=== PATIENT | male | born 1940 | race Caucasian/White ===

== ENCOUNTER 2023-12-26 21:20 | Observation (INO) | payer OTHER, MEDICARE ==
[2023-12-26] MEDS ORDERED: NALOXONE 0.4 MG/ML 1 ML VIAL IV PRN (21:25)
[2023-12-26] MEDS ORDERED: MORPHINE SULFATE 4 MG/ML SYRINGE IV PRN (21:25)
[2023-12-26] MEDS ORDERED: MORPHINE SULFATE 4 MG/ML SYRINGE IV STA (21:25)
[2023-12-26] MEDS ORDERED: SODIUM CHLORIDE 0.9% 1,000 ML IV STA (21:25)
[2023-12-26] MEDS ORDERED: ONDANSETRON 4 MG/2 ML VIAL IVP PRN (21:25)
--- NOTE | 2023-12-26 21:30 | ED ---
Recheck HPI - General Stated Complaint: Transfer Time Seen by Provider: 12/26/23 21:22 Source: RN notes reviewed, old records reviewed Limitations: no limitations - History of Present Illness Initial Comments: This is a 83-year-old male to the ER for evaluation today. Patient presents today for evaluation regards to chest pain and excepted in transfer from outside facility for chest pain, unstable angina. Patient still with chest pain here in the ER today. MD Complaint: other (Persistent chest pain) Returns Today for: Called Because of Abnormal Lab/Test, persistent/worsening pain related to initial visit Symptoms Since Prior Visit: worsening pain Associated Symptoms: none Treatments Prior to Arrival: other (0) - Related Data Allergies Allergy/AdvReac Type Severity Reaction Status Date / Time No Known Allergies Allergy Verified 12/26/23 21:34 Review of Systems ROS Statement: Those systems with pertinent positive or pertinent negative responses have been documented in the HPI. ROS Other: All systems not noted in ROS Statement are negative. General Exam General appearance: alert, in no apparent distress Head exam: Present: atraumatic, normocephalic, normal inspection Eye exam: Present: normal appearance, PERRL, EOMI. Absent: scleral icterus, conjunctival injection, periorbital swelling ENT exam: Present: normal exam, mucous membranes moist Neck exam: Present: normal inspection. Absent: tenderness, meningismus, lymphadenopathy Respiratory exam: Present: normal lung sounds bilaterally. Absent: respiratory distress, wheezes, rales, rhonchi, stridor Cardiovascular Exam: Present: regular rate, normal rhythm, normal heart sounds. Absent: systolic murmur, diastolic murmur, rubs, gallop, clicks GI/Abdominal exam: Present: soft, normal bowel sounds. Absent: distended, tenderness, guarding, rebound, rigid Extremities exam: Present: normal inspection, full ROM, normal capillary refill. Absent: tenderness, pedal edema, joint swelling, calf tenderness Back exam: Present: normal inspection Neurological exam: Present: alert, oriented X3, CN II-XII intact Psychiatric exam: Present: normal affect, normal mood Skin exam: Present: warm, dry, intact, normal color. Absent: rash Course Vital Signs 12/26/23 21:25 Temperature 98.1 F Pulse Rate 61 Respiratory 20 Rate Blood Pressure 147/91 O2 Sat by Pulse 96 Oximetry - Reevaluation(s) Reevaluation #1: 12/26/23 21:28 Medical records reviewed Reevaluation #2: 12/26/23 21:29 Patient still with chest pain Reevaluation #3: 12/26/23 21:29 Patient informed of results and questions answered Reevaluation #4: 12/26/23 21:29 Was pt. sent in by a medical professional or institution (, REGINA, MANAGER CORE, urgent care, hospital, or fdc...) When possible be specific @ -no Did you speak to anyone other than the patient for history (EMS, parent, family, police, friend...)? What history was obtained from this source @ -no Did you review nursing and triage notes (agree or disagree)? Why? @ -agree Are old charts reviewed (outside hosp., previous admission, EMS record, old EKG, old radiological studies, urgent care reports/EKG's, fdc records)? Report findings @ -yes Differential Diagnosis (chest pain, altered mental status, abdominal pain women, abdominal pain men, vaginal bleeding, weakness, fever, dyspnea, syncope, headache, dizziness, GI bleed, back pain, seizure, CVA, palpatations, mental health, musculoskeletal)? @ -prior EKG interpreted by me (3pts min.). @ -yes X-rays interpreted by me (1pt min.). @ -yes negative for acute disease CT interpreted by me (1pt min.). @ -no U/S interpreted by me (1pt. min.). @ -no What testing was considered but not performed or refused? (CT, X-rays, U/S, labs)? Why? @ -none What meds were considered but not given or refused? Why? @ -none Did you discuss the management of the patient with other professionals (professionals i.e. , REGINA, MANAGER CORE, lab, RT, psych nurse, social science research assistant, industrial diamond polisher, teacher, special forces warrant officer, case checker)? Give summary @ -no Was smoking cessation discussed for >3mins.? @ -no Was critical care preformed (if so, how long)? @ -no Were there social determinants of health that impacted care today? How? (Homelessness, low income, unemployed, alcoholism, drug addiction, tra nsportation, low edu. Level, literacy, decrease access to med. care, shelter, rehab)? @ -none Was there de-escalation of care discussed even if they declined (Discuss DNR or withdrawal of care, Hospice)? DNR status @ -no What co-morbidities impacted this encounter? (DM, HTN, Smoking, COPD, CAD, Cancer, CVA, ARF, Chemo, Hep., AIDS, mental health diagnosis, sleep apnea, morbid obesity)? @ -none Was patient admitted / discharged? Hospital course, mention meds given and route, prescriptions, significant lab abnormalities, going to OR and other pertinent info. @ - Undiagnosed new problem with uncertain prognosis? @ -no Drug Therapy requiring intensive monitoring for toxicity (Heparin, Nitro, Insulin, Cardizem)? @ -no Were any procedures done? @ -no Diagnosis/symptom? @ - Acute, or Chronic, or Acute on Chronic? @ -Acute Uncomplicated (without systemic symptoms) or Complicated (systemic symptoms)? @ -Complicated Side effects of treatment? @ -no Exacerbation, Progression, or Severe Exacerbation? @ -exacerbation Poses a threat to life or bodily function? How? (Chest pain, USA, OR, pneumonia, PE, COPD, DKA, ARF, appy, cholecystitis, CVA, Diverticulitis, Homicidal, Suicidal, threat to staff... and all critical care pts) @ -yes Reevaluation #5: 12/26/23 21:29 MDM differential Chest Pain: Stable Angina, Unstable Angina, STEMI, NSTEMI Aortic Dissection, Pneumothorax, Musculoskeletal, Esophageal Spasm GERD, Cholecystitis, Pancreatitis, Zoster, this is not meant to be an all-inclusive list. - Consultations Consultation #1: Spoke with sound who agrees to admit this patient Medical Decision Making - Medical Decision Making 83 male to the ER for evaluation today. Patient accepted in transfer for chest pain persistent chest pain here in the ER patient will be admitted for chest pain observation - EKG Data -: EKG Interpreted by Me (EKG is sinus 60 ME 231 QRS 89 QTc 423 with anterior lateral T wave inversio) Disposition Clinical Impression: Chest pain Disposition: ADMITTED IP TO THIS HOSP Condition: Fair Is patient prescribed a controlled substance at d/c from ED?: No Time of Disposition: 21:30
[2023-12-26] MEDS: SODIUM CHLORIDE 0.9% 1,000 ML IV SCH (21:38)
[2023-12-26] MEDS ORDERED: HEPARIN SODIUM 1,000 UN/ML (10ML VL) IV ONE (21:50)
[2023-12-26] MEDS ORDERED: HEPARIN SODIUM 1,000 UN/ML (10ML VL) IV PRN (21:50)
[2023-12-26] MEDS ORDERED: HEPARIN SOD,PORK IN 0.45% NACL 25,000 UNIT in 0.45% NACL 1 250ML.BAG IV SCH (22:00)
[2023-12-26 22:05] LABS: Partial Thromboplastin Time 24.7 sec (22.0-30.0); Prothrombin Time 10.7 sec (10.0-12.5)
[2023-12-26 22:09] LABS: ALT 25 U/L (4-49); AST 30 U/L (17-59); African American GFR (CKD) 63 (>60 ml/min/1.73 sqM); Albumin 3.5 g/dL (3.5-5.0); Alkaline Phosphatase 316 U/L (38-126); Anion Gap 12 mmol/L; Blood Urea Nitrogen 36 mg/dL (9-20); Calcium 9.6 mg/dL (8.4-10.2); Carbon Dioxide 21 mmol/L (22-30); Chloride 103 mmol/L (98-107); Glucose 148 mg/dL (74-99); Magnesium 2.2 mg/dL (1.6-2.3); Non-African American GFR(CKD) 54 (>60 ml/min/1.73 sqM); Phosphorus 4.2 mg/dL (2.5-4.5); Potassium 3.9 mmol/L (3.5-5.1); Sodium 136 mmol/L (137-145); Total Bilirubin 0.6 mg/dL (0.2-1.3); Total Protein 6.3 g/dL (6.3-8.2)
[2023-12-26 22:16] LABS: Basophils % (A) 0 %; Eosinophils # (A) 0.2 k/uL (0-0.7); Eosinophils % (A) 1 %; HCT 42.1 % (39.0-53.0); HGB 14.2 gm/dL (13.0-17.5); Lymphocytes # (A) 0.7 k/uL (1.0-4.8); Lymphocytes % (A) 6 %; MCH 28.5 pg (25.0-35.0); MCHC 33.7 g/dL (31.0-37.0); MCV 84.5 fL (80.0-100.0); Mean Platelet Volume 8.2; Monocytes # (A) 0.7 k/uL (0-1.0); Monocytes % (A) 6 %; Neutrophils # (A) 9.9 k/uL (1.3-7.7); Neutrophils % (A) 85 %; Platelet Count 255 k/uL (150-450); RBC 4.98 m/uL (4.30-5.90); RDW 14.6 % (11.5-15.5); WBC 11.7 k/uL (3.8-10.6)
[2023-12-26 22:18] LABS: NT-Pro-B-Type Natriuretic Pept 450 pg/mL
--- NOTE | 2023-12-27 04:30 | P.HPIM ---
History of Present Illness H&P Date: 12/26/23 Chief Complaint: Chest pain 83-year-old male with diabetes mellitus Patient was transferred from another facility for our cardiology team to evaluate. I was unable to review his transfer papers as they were unavailable at time of my evaluation nursing staff could not locate the chart. Patient reports couple days history of repeated productive cough of whitish/clear sputum no fevers no chills however he does report that with the bouts of coughing he would get short of breath today he was getting some chest pain and discomfort from repeated coughing for which she decided to drive to the hospital for evaluation somehow upon evaluation at the other facility the doctor s there is suspected cardiac source of his coughing for which they decided to transfer her to our hospital for further cardiology evaluation Patient denies any cardiac history denies any cardiac workup in the past. He denies any chest pain at this time. He denies any fevers any chills denies any shortness of breath denies any nausea vomiting abdominal pain changes in bowel or urine habit denies any leg edema. Patient denies tobacco smoking illicit drugs or heavy alcohol Patient denies any recent travel hospital stay or known sick contacts review of systems Pertinent positives as noted in HPI. All other systems were reviewed and are negative on exam Constitutional: No acute distress, conversant, pleasant Eyes: Anicteric sclerae, moist conjunctiva, Pupils equal round reactive to light ENMT: NC/AT Oropharynx clear, no erythema, or exudates Neck: Supple, no masses, or JVD No carotid bruits No thyromegaly Lungs: Clear to auscultation Clear to percussion Normal respiratory effort, no accessory muscle use Cardiovascular: Heart regular in rate and rhythm, Systolic murmurs, no gallops, or rubs No peripheral edema Abdominal: Soft Nontender, no guarding, rebound or rigidity Abdomen moving with respiration Normoactive bowel sounds No hepatomegaly, No splenomegaly No palpable mass No abdominal wall hernia noted Skin: Normal temperature, tone, texture, turgor No induration No subcutaneous nodules No rash, lesions No ulcers Extremities: No digital cyanosis No clubbing Pedal pulses intact and symmetrical Radial pulses intact and symmetrical No calf tenderness Psychiatric: Alert and oriented to person, place and time Appropriate affect fair judgement Neuro Muscles Strength 5/5 in all 4 extremities Sensation to light touch grossly present throughout Cranial nerves II-XII grossly intact Lymphatics: no palpable cervical or supraclavicular lymph nodes Past Medical History Past Medical History: Diabetes Mellitus, Hyperlipidemia, Hypertension History of Any Multi-Drug Resistant Organisms: None Reported Past Surgical History: Hernia Repair, Prostate Surgery Past Psychological History: No Psychological Hx Reported Smoking Status: Former smoker Past Alcohol Use History: Rare Past Drug Use History: None Reported Medications and Allergies Allergies Allergy/AdvReac Type Severity Reaction Status Date / Time No Known Allergies Allergy Verified 12/26/23 21:34 Physical Exam Vitals: Vital Signs Temp Pulse Resp BP Pulse Ox 12/26/23 22:45 67 18 139/78 95 12/26/23 21:25 98.1 F 61 20 147/91 96 Intake and Output 12/26/23 12/26/23 12/27/23 14:59 22:59 06:59 Other: Weight 72.575 kg Results CBC & Chem 7: 12/26/23 21:31 12/26/23 21:31 Labs: Abnormal Lab Results - Last 24 Hours (Table) 12/26/23 12/26/23 Range/Units 21:31 21:31 WBC 11.7 H (3.8-10.6) k/uL Neutrophils # 9.9 H (1.3-7.7) k/uL Lymphocytes # 0.7 L (1.0-4.8) k/uL Sodium 136 L (137-145) mmol/L Carbon Dioxide 21 L (22-30) mmol/L BUN 36 H (9-20) mg/dL Glucose 148 H (74-99) mg/dL Alkaline Phosphatase 316 H (38-126) U/L Assessment and Plan Assessment: 83-year-old male with diabetes mellitus was transferred to our facility for cardiac evaluation, patient reports couple day history of repeated coughing with associated chest pain. I discussed case with ED doctor and accepted the admission for atypical chest pain for ACS rule out with anticipated length of stay less than 2 midnights Transfer records from other hospital was not available immediately for my evaluation. Nursing staff was unable to locate the chart space for my review. Atypical chest pain rule out acute coronary syndrome Troponin is negative EKG shows lateral T wave inversions suggestive of lateral ischemia Continue to trend troponin Cardiac monitoring Vital signs monitoring Cardiology consult Echocardiogram in the morning Aspirin, statin Nitro as needed for chest pain Patient was started on heparin drip at the other facility which was continued in the ED Diabetes mellitus Insulin sliding scale Blood work reviewed unremarkable Hemoglobin 14 white count 11.7 Sodium 136 potassium 3.9 BUN 36 creatinine 1.24 Tropes negative Check respiratory viral panel Check chest x-ray Full code DVT prophylaxis currently on heparin drip for ACS protocol
[2023-12-27] MEDS ORDERED: DEXTROSE 50% SYRINGE 50 ML IVP PRN ×2 (04:32)
[2023-12-27] MEDS: SODIUM CHLORIDE 0.9% 1,000 ML IV SCH (05:22)
[2023-12-27 05:53] LABS: Glucose,Whole Blood 141 mg/dL (70-110)
[2023-12-27] MEDS: INSULIN ASPART (NovoLOG) 100 UNIT/ML VIAL SQ SCH ×4 (06:03→21:35)
[2023-12-27 06:25] LABS: Basophils % (A) 0 %; Eosinophils # (A) 0.2 k/uL (0-0.7); Eosinophils % (A) 2 %; HCT 43.3 % (39.0-53.0); HGB 14.1 gm/dL (13.0-17.5); Lymphocytes # (A) 0.6 k/uL (1.0-4.8); Lymphocytes % (A) 7 %; MCH 28.4 pg (25.0-35.0); MCHC 32.6 g/dL (31.0-37.0); MCV 87.1 fL (80.0-100.0); Mean Platelet Volume 7.9; Monocytes # (A) 0.5 k/uL (0-1.0); Monocytes % (A) 6 %; Neutrophils # (A) 7.4 k/uL (1.3-7.7); Neutrophils % (A) 84 %; Platelet Count 220 k/uL (150-450); RBC 4.96 m/uL (4.30-5.90); RDW 14.6 % (11.5-15.5); WBC 8.8 k/uL (3.8-10.6)
[2023-12-27 07:20] LABS: ALT 23 U/L (4-49); AST 27 U/L (17-59); African American GFR (CKD) 65 (>60 ml/min/1.73 sqM); Albumin 3.3 g/dL (3.5-5.0); Alkaline Phosphatase 312 U/L (38-126); Anion Gap 11 mmol/L; Blood Urea Nitrogen 32 mg/dL (9-20); Calcium 9.4 mg/dL (8.4-10.2); Carbon Dioxide 20 mmol/L (22-30); Chloride 105 mmol/L (98-107); Glucose 142 mg/dL (74-99); Magnesium 2.1 mg/dL (1.6-2.3); Non-African American GFR(CKD) 56 (>60 ml/min/1.73 sqM); Sodium 136 mmol/L (137-145); Total Bilirubin 0.7 mg/dL (0.2-1.3)
--- NOTE | 2023-12-27 08:59 | XR ---
EXAMINATION TYPE: XR chest 1V portable DATE OF EXAM: 12/27/2023 COMPARISON: 12/26/2023 INDICATION: Cough TECHNIQUE: Single frontal view of the chest is obtained. FINDINGS: The heart size is normal. The pulmonary vasculature is normal. The lungs are clear. Spondylosis within the thoracic spine. IMPRESSION: 1. No acute pulmonary process.
[2023-12-27] MEDS: ASPIRIN 81 MG PO SCH (09:39)
[2023-12-27] MEDS: ATORVASTATIN 40 MG TAB PO SCH (09:40)
[2023-12-27] MEDS ORDERED: MAG HYDROX/AL HYDROX/SIMETH 30 ML, HYOSCYAMINE ELIXIR 10 ML, LIDOCAINE VISCOUS 10 ML PO ONE ×3 (09:57)
--- NOTE | 2023-12-27 09:59 | P.PN ---
Subjective Progress Note Date: 12/27/23 Hospital course: Patient is a very pleasant 83-year-old male with a past medical history of hypertension, hyperlipidemia, non-insulin dependent diabetes mellitus, and currently under evaluation by exchange floor manager for suspected renal carcinoma. Patient was transferred from [facility] ER secondary to reports of chest pain and slightly elevated troponins with reported EKG changes. Upon arrival to our facility patient underwent full evaluation. Vital signs at time of arrival show blood pressure 147/91, heart rate 61, respiratory rate 20, temp 98.1 F, a nd SpO2 of 96% on room air. Labs completed and reviewed. CBC showing mild leukocytosis with WBC count of 11.7. Coagulation profile normal findings. BMP revealed mild hypocarbia with bicarb of 21, chloride of 103 and slightly elevated anion gap of 12, renal function also indicating prerenal azotemia with BUN of 36 and creatinine of 1.24. Blood glucose was 148. Liver profile showed elevated alkaline phosphatase of 316. Troponin was 0.021. proBNP was 450.. EKG was completed showing normal sinus rhythm with a first-degree AV block with MO interval of 231 ms and T wave inversion in leads I, II, and V2 through V6. Chest x-ray was completed and negative for acute cardiopulmonary process. Patient was started on low intensity heparin infusion and admitted under our services with consultation to cardiology. Physical exam: Patient seen and fully evaluated at bedside this morning. Patient's family at bedside visiting. Patient describes currently feeling pain in lower chest/epigastric region that he describes as a burning sensation that he is correlating with indigestion from eating breakfast at this time. Orders placed for GI cocktail we will continue to monitor closely. Upon further evaluation patient also reports that he has been experiencing exertional dyspnea as well as dizziness upon standing. Vital signs reviewed and stable. General: Nontoxic, no distress and appears stated age. Derm: Skin warm and dry, normal coloration for ethnicity. Head: Atraumatic, normocephalic and symmetric. Eyes: EOMs intact, no lid lag, and anicteric sclera Mouth: no lip lesions, mucus membranes moist Cardiovascular: regular rate and rhythm with normal S1S2, systolic murmur, positive posterior tibial pulses bilaterally, and cap refill < 2 seconds. Lungs: Respirations even, regular, and unlabored on room air. Lungs CTA bilaterally, no rhonchi, no rales, no wheezing, and no accessory muscle usage. Abdominal: soft, nontender to palpation, no guarding, no appreciable organomegaly Ext: ROM intact. No gross muscle atrophy, no edema, no contractures Neuro: Speech clear, face symmetrical and CN II-XII grossly intact with no noted focal neuro deficits Psych: Alert and oriented to person, place, time, and situation. Appropriate and pleasant affect. Assessment and Plan of Care: Chest pain, rule out acute coronary event EKG changes, concerning for lateral wall ischemia Reports of dizziness/lightheadedness upon standing Exertional dyspnea History of hypertension History of hyperlipidemia -Cardiology following, planning to take patient for stress test Friday morning -Telemetry monitoring -Trend troponins -Cardiac diet -Patient started on aspirin 81 mg daily and atorvastatin 2 mg daily. -Lipid profile with a.m. labs. -Echocardiogram -Orders placed for orthostatic vitals None insulin-dependent Diabetes Mellitus with hemoglobin A1c of 11.8% -Hold oral hypoglycemic medications and pt placed on glycemic protocol with novolog sliding scale. Data reviewed: Vital signs reviewed. Blood pressure 124/68, heart rate 64, respiratory rate 19, temp 97.7 F, and SpO2 is 95% on room air. Morning labs reviewed and stable. CBC unremarkable. BMP revealing bicarb of 20 and elevated BUN of 32 otherwise normal findings. Blood glucose stable at 142 this morning. Hemoglobin A1c 11.8%. CODE STATUS: Full code DVT prophylaxis: Currently on low intensity heparin infusion Anticipated discharge date: Clinical course to determine Anticipated discharge place: Clinical course to determine Patient was seen independently by Nurse Pracitioner. This document was prepared using [employer] dictation software. Please allow for errors in director mortgage, while rare they do occur. Objective - Vital Signs Vital signs: Vital Signs Temp 97.7 F 12/27/23 07:00 Pulse 64 12/27/23 07:00 Resp 19 12/27/23 07:00 BP 124/68 12/27/23 07:00 Pulse Ox 95 12/27/23 07:00 FiO2 Intake & Output 12/26/23 12/27/23 12/27/23 18:59 06:59 18:59 Intake Total 69.817 Balance 69.817 Weight 72.575 kg Intake: Intake, IV Titration 69.817 Amount Heparin Sod,Pork in 0.45% 69.817 NaCl 25,000 unit In 0.45 % NaCl 1 250ml.bag @ 12 UNITS/KG/HR 8.709 mls/hr IV .Q24H [facility] Rx#: [id number] Other: # Voids 1 - Labs CBC & Chem 7: 12/27/23 05:44 12/27/23 05:44 Labs: Abnormal Lab Results - Last 24 Hours (Table) 12/26/23 12/26/23 12/27/23 Range/Units 21:31 21:31 05:44 WBC 11.7 H (3.8-10.6) k/uL Neutrophils # 9.9 H (1.3-7.7) k/uL Lymphocytes # 0.7 L 0.6 L (1.0-4.8) k/uL APTT (22.0-30.0) sec Sodium 136 L (137-145) mmol/L Carbon Dioxide 21 L (22-30) mmol/L BUN 36 H (9-20) mg/dL Glucose 148 H (74-99) mg/dL POC Glucose (mg/dL) (70-110) mg/dL Alkaline Phosphatase 316 H (38-126) U/L Total Protein (6.3-8.2) g/dL Albumin (3.5-5.0) g/dL 12/27/23 12/27/23 12/27/23 Range/Units 05:44 05:44 05:52 WBC (3.8-10.6) k/uL Neutrophils # (1.3-7.7) k/uL Lymphocytes # (1.0-4.8) k/uL APTT 51.4 H (22.0-30.0) sec Sodium 136 L (137-145) mmol/L Carbon Dioxide 20 L (22-30) mmol/L BUN 32 H (9-20) mg/dL Glucose 142 H (74-99) mg/dL POC Glucose (mg/dL) 141 H (70-110) mg/dL Alkaline Phosphatase 312 H (38-126) U/L Total Protein 6.0 L (6.3-8.2) g/dL Albumin 3.3 L (3.5-5.0) g/dL
--- NOTE | 2023-12-27 10:57 | P.CRDCN ---
History of Present Illness Consult date: 12/27/23 Consult reason: chest pain History of present illness: History of present illness: This is an 83-year-old man with no previous cardiac history and no previous cardiac workup. He has a past medical history of diabetes, hypertension, hyperlipidemia, remote tobacco use and dependence. We have been asked to evaluate the patient for chest pain. Patient states that for the past 1 and half months he has had cough with phlegm production which he thought was his sinuses. He thought it was continuing to worsen and then he developed weakness and sweats and some chest pain when he coughed and gagged. Chest pain was in the midsternal area that was nonradiating but now the pain seems to be in the epigastric area. Patient presented to facility in [place] and lab work there was done which showed a normal troponin of 0.023. Sodium 133, potassium 4.3, BUN 37 and creatinine 1.4, blood sugar 290. Chest x-ray showed no focal consolidation. Left lower lobe atelectasis. Patient was transferred to [facility] for further evaluation. He is seen today on the observation unit. He has a heparin drip running. He continues to have cough. EKG sinus rhythm with first-degree block Chest x-ray: No acute process WBC 8.8, hemoglobin 14.1, platelet count 220. Sodium 136, potassium 4, BUN 32 creatinine 1.2. Blood sugar 142. Magnesium 2.1. Alkaline phosphatase 312 other liver function test are normal. Home cardiac medications: None listed Review Of Systems: At the time of my evaluation: Constitutional: No fever, no chills. No weakness, fatigue or lethargy. EENT: No headache. No dizziness. Lungs: No shortness of breath, cough, no sputum production. No wheezing. Cardiovascular: No chest pain, no lower extremity edema. No palpitations. No paroxysmal nocturnal dyspnea. No orthopnea. No lightheadedness or dizziness. No syncopal episodes. Abdominal: No abdominal pain. No nausea, vomiting. No diarrhea. No constipation. No bloody or tarry stools. Genitourinary: No dysuria.. No urinary retention. Musculoskeletal: No myalgias. No muscle weakness, no frequent falls. No back pain. No neck pain. Integumentary: No wounds. No rash. No unusual bruising. Neurologic: No aphasia. No facial droop. No change in mentation. No head injury. No headache. Physical examination: Gen: This is an 83-year-old male appears to be comfortable, no acute distress, frequent coughing noted. VS: reviewed HEENT: Head is atraumatic, normocephalic. Pupils equal, round. Sclerae is anicteric. NECK: Supple. No JVD. . LUNGS: Clear to auscultation. No wheezes or rhonchi. No intercostal retractions. HEART: Regular rate and rhythm. 2/6 systolic ejection murmur ABDOMEN: Soft No tenderness. EXTREMITIES: No pedal edema. No calf tenderness. NEUROLOGICAL: Patient is awake, alert and oriented x3. Assessment: Chest pain rule out coronary artery disease Aortic stenosis Acute kidney injury Elevated alkaline phosphatase Bronchitis Diabetes Hypertension Hyperlipidemia Remote history of tobacco use Plan: Continue current cardiac medications started by attending. Discontinue heparin drip Obtain 2-D echocardiogram and Doppler study to assess cardiac structure and function Patient will be tentatively scheduled for Lexiscan stress test on Friday N.p.o. after midnight on Friday. A1c and lipid panel ordered Further recommendations to follow based upon clinical course Thank you kindly for this consultation. Nurse practitioner note has been reviewed, I agree with documented findings and plan of care. Patient was seen and examined. Past Medical History Past Medical History: Diabetes Mellitus, Hyperlipidemia, Hypertension History of Any Multi-Drug Resistant Organisms: None Reported Past Surgical History: Hernia Repair, Prostate Surgery Past Psychological History: No Psychological Hx Reported Smoking Status: Former smoker Past Alcohol Use History: Rare Past Drug Use History: None Reported Medications and Allergies Allergies Allergy/AdvReac Type Severity Reaction Status Date / Time No Known Allergies Allergy Verified 12/26/23 21:34 Physical Exam Vitals: Vital Signs Temp Pulse Pulse Resp BP BP Pulse Ox 12/27/23 07:00 97.7 F 64 19 124/68 95 12/27/23 02:00 97.6 F 55 L 16 137/65 95 12/26/23 23:40 97.6 F 66 16 153/73 95 12/26/23 22:45 67 18 139/78 95 12/26/23 21:25 98.1 F 61 20 147/91 96 Intake and Output 12/26/23 12/27/23 12/27/23 22:59 06:59 14:59 Intake Total 69.817 Balance 69.817 Intake: Intake, IV Titration 69.817 Amount Heparin Sod,Pork in 0.45% 69.817 NaCl 25,000 unit In 0.45 % NaCl 1 250ml.bag @ 12 UNITS/KG/HR 8.709 mls/hr IV .Q24H [facility] Rx#: [id number] Other: # Voids 1 Weight 72.575 kg Results 12/27/23 05:44 12/27/23 05:44 Cardiac Enzymes 12/26/23 12/26/23 12/27/23 Range/Units 21:31 21:31 05:44 AST 30 27 (17-59) U/L Troponin I 0.021 (0.000-0.034) ng/mL Coagulation 12/26/23 12/27/23 Range/Units 21:31 05:44 PT 10.7 (10.0-12.5) sec APTT 24.7 51.4 H (22.0-30.0) sec CBC 12/26/23 12/27/23 Range/Units 21:31 05:44 WBC 11.7 H 8.8 (3.8-10.6) k/uL RBC 4.98 4.96 (4.30-5.90) m/uL Hgb 14.2 14.1 (13.0-17.5) gm/dL Hct 42.1 43.3 (39.0-53.0) % Plt Count 255 220 (150-450) k/uL Comprehensive Metabolic Panel 12/26/23 12/27/23 Range/Units 21:31 05:44 Sodium 136 L 136 L (137-145) mmol/L Potassium 3.9 4.0 (3.5-5.1) mmol/L Chloride 103 105 (98-107) mmol/L Carbon Dioxide 21 L 20 L (22-30) mmol/L BUN 36 H 32 H (9-20) mg/dL Creatinine 1.24 1.20 (0.66-1.25) mg/dL Glucose 148 H 142 H (74-99) mg/dL Calcium 9.6 9.4 (8.4-10.2) mg/dL AST 30 27 (17-59) U/L ALT 25 23 (4-49) U/L Alkaline Phosphatase 316 H 312 H (38-126) U/L Total Protein 6.3 6.0 L (6.3-8.2) g/dL Albumin 3.5 3.3 L (3.5-5.0) g/dL Current Medications Generic Name Dose Route Start Last Admin Trade Name Freq PRN Reason Stop Dose Admin Dextrose/Water 25 ml 12/27/23 04:32 Dextrose 50% Syringe 50 Ml IVP PER PROTOCOL PRN Hypoglycemia Protocol Dextrose/Water 50 ml 12/27/23 04:32 Dextrose 50% Syringe 50 Ml IVP PER PROTOCOL PRN Hypoglycemia Protocol Heparin Sodium (Porcine) 0 unit 12/26/23 21:50 Heparin Sodium 1,000 Un/Ml (10ml Vl) IV PER PROTOCOL PRN Low PTT Protocol Sodium Chloride 1,000 mls @ 130 mls/hr 12/26/23 21:30 12/27/23 05:22 Saline 0.9% IV Not Given .Q7H42M [facility] Heparin Sodium/Sodium Chloride 250 mls @ 8.709 mls/hr 12/26/23 22:00 12/27/23 06:41 25,000 unit/ Sodium Chloride IV 12 units/kg/hr .Q24H [facility] 8.709 mls/hr Titration Protocol 12 UNITS/KG/HR Insulin Aspart 0 unit 12/27/23 07:30 12/27/23 06:03 Insulin Aspart (Novolog) 100 Unit/Ml Vial SQ Not Given ACHS [facility] Protocol Morphine Sulfate 4 mg 12/26/23 21:25 Morphine Sulfate 4 Mg/Ml Syringe IV Q4HR PRN Severe Pain (Scale 7 to 10) Naloxone HCl 0.2 mg 12/26/23 21:25 Naloxone 0.4 Mg/Ml 1 Ml Vial IV Q2M PRN Opioid Reversal Ondansetron HCl 4 mg 12/26/23 21:25 Ondansetron 4 Mg/2 Ml Vial IVP Q8HR PRN Nausea And Vomiting Intake and Output 12/26/23 12/27/23 12/27/23 22:59 06:59 14:59 Intake Total 69.817 Balance 69.817 Intake: Intake, IV Titration 69.817 Amount Heparin Sod,Pork in 0.45% 69.817 NaCl 25,000 unit In 0.45 % NaCl 1 250ml.bag @ 12 UNITS/KG/HR 8.709 mls/hr IV .Q24H [facility]#: [id number] Other: # Voids 1 Weight 72.575 kg 12/27/23 05:44 12/27/23 05:44
--- NOTE | 2023-12-27 12:02 | CA ---
Transthoracic Echo Report Name: Milton Maurer Age: 83 Gender: M : 1940 Exam Date: 12/27/2023 10:08 Exam Location: [place] [facility] Ht (in): 70 Wt (lb): 160 Ordering Physician: Phil Patino Attending/Referring Phys: Diesel Truck Driver Renetta Terrell RDCS Procedure CPT: Indications: Evaluate structure and function of heart Cardiac Hx: Technical Quality: Good Contrast 1: Total Dose (mL): Contrast 2: Total Dose (mL): MEASUREMENTS (Male / Female) Normal Values 2D ECHO LV Diastolic Diameter PLAX 4.6 cm 4.2 - 5.9 / 3.9 - 5.3 cm LV Systolic Diameter PLAX 3.0 cm IVS Diastolic Thickness 1.2 cm 0.6 - 1.0 / 0.6 - 0.9 cm LVPW Diastolic Thickness 1.1 cm 0.6 - 1.0 / 0.6 - 0.9 cm LV Relative Wall Thickness 0.5 RV Internal Dim ED PLAX 3.6 cm LVOT Diameter 2.3 cm LA Systolic Diameter LX 4.1 cm 3.0 - 4.0 / 2.7 - 3.8 cm LV Diastolic Volume MOD BP 78.1 cm??? 67 - 155 / 56 - 104 cm??? LV Systolic Volume MOD BP 19.9 cm??? 22 - 58 / 19 - 49 cm??? LV Ejection Fraction MOD BP 74.6 % >= 55 % LV Cardiac Index MOD BP 1750.5 cm???/min???m??? LV Diastolic Volume MOD 4C 66.6 cm??? LV Systolic Volume MOD 4C 17.9 cm??? LV Ejection Fraction MOD 4C 73.1 % LV Cardiac Index MOD 4C 1465.8 cm???/min???m??? LV Diastolic Length 4C 7.2 cm LV Systolic Length 4C 6.7 cm LV Diastolic Volume MOD 2C 84.6 cm??? LV Systolic Volume MOD 2C 21.0 cm??? LV Ejection Fraction MOD 2C 75.2 % LV Cardiac Index MOD 2C 1912.9 cm???/min???m??? LV Diastolic Length 2C 8.0 cm LV Systolic Length 2C 7.2 cm LA Volume 70.8 cm??? 18 - 58 / 22 - 52 cm??? LA Volume Index 37.3 cm???/m??? 16 - 28 cm???/m??? M-MODE Aortic Root Diameter MM 3.9 cm MV E Point Septal Separation 1.1 cm AV Cusp Separation MM 1.8 cm DOPPLER AV Peak Velocity 363.2 cm/s AV Peak Gradient 52.8 mmHg AV Mean Velocity 233.3 cm/s AV Mean Gradient 25.6 mmHg AV Velocity Time Integral 75.5 cm AI Peak Velocity 347.1 cm/s AI Peak Gradient 48.2 mmHg AI Pressure Half Time 532.2 ms LVOT Peak Velocity 132.8 cm/s LVOT Peak Gradient 7.1 mmHg AV Area Cont Eq pk 1.5 cm??? MV Area PHT 2.4 cm??? Mitral E Point Velocity 69.9 cm/s Mitral A Point Velocity 97.7 cm/s Mitral E to A Ratio 0.7 MV Deceleration Time 322.2 ms TR Peak Velocity 304.0 cm/s TR Peak Gradient 37.0 mmHg Right Ventricular Systolic Press 42.0 mmHg FINDINGS Left Ventricle Left ventricular ejection fraction is estimated at 65-70 %. Mildly increased septal wall thickness. Left ventricular cavity size normal. No obvious regional wall motion abnormalities. Right Ventricle Mild right ventricular dilatation. Mild pulmonary hypertension. Right Atrium Normal right atrial size. Left Atrium Mildly increased left atrial diameter. Moderately increased left atrial volume. Mildly increased left atrial area. Mitral Valve Mitral valve thickened. Mild mitral annular calcification. Mild mitral regurgitation. Aortic Valve Trileaflet aortic valve. Aortic valve sclerosis. Moderate aortic stenosis with a peak gradient of 53 mmHg and a mean gradient of 26 mmHg. Njve-uv-defyboye aortic regurgitation. Tricuspid Valve Structurally normal tricuspid valve. Mild tricuspid regurgitation. Pulmonic Valve Structurally normal pulmonic valve. No pulmonic regurgitation. Pericardium No pericardial effusion. Aorta Mild aortic dilatation at the level of the sinuses of valsalva 39 mm CONCLUSIONS Normal LV function Mild mitral regurgitation Moderate aortic stenosis Mild to moderate iritic regurgitation Mildly dilated aortic root Previewed by: Dr. Miquel Lofton MD (Electronically Signed) Final Date: 27 December 2023 12:01
[2023-12-27 12:08] LABS: Glucose,Whole Blood 295 mg/dL (70-110)
[2023-12-27 17:30] LABS: Glucose,Whole Blood 229 mg/dL (70-110)
[2023-12-27 20:42] LABS: Glucose,Whole Blood 169 mg/dL (70-110)
[2023-12-28 06:03] LABS: Glucose,Whole Blood 185 mg/dL (70-110)
[2023-12-28] MEDS: INSULIN ASPART (NovoLOG) 100 UNIT/ML VIAL SQ SCH ×4 (06:05→21:03)
[2023-12-28] MEDS: ASPIRIN 81 MG PO SCH (08:50)
[2023-12-28] MEDS: ATORVASTATIN 40 MG TAB PO SCH (08:50)
[2023-12-28 10:24] LABS: HCT 42.6 % (39.6-50.0); HGB 13.6 g/dL (13.0-17.0); MCH 27.2 pg (27.0-32.0); MCHC 31.9 g/dL (32.0-37.0); MCV 85.2 FL (80.0-97.0); Mean Platelet Volume 10.5 FL (9.5-12.2); NRBC Per 100 WBC 0 X 10*3/uL (0.00-0.01); Platelet Count 215 X 10*3/uL (140-440); RDW 14.8 % (11.5-14.5); WBC 8.86 X 10*3/uL (4.50-10.00)
[2023-12-28] MEDS ORDERED: FAMOTIDINE 20 MG TAB PO SCH (11:30)
--- NOTE | 2023-12-28 11:32 | P.PN ---
Subjective Progress Note Date: 12/28/23 Consult reason: chest pain History of present illness: History of present illness: This is an 83-year-old man with no previous cardiac history and no previous cardiac workup. He has a past medical history of diabetes, hypertension, hyperlipidemia, remote tobacco use and dependence. We have been asked to evaluate the patient for chest pain. Patient states that for the past 1 and half months he has had cough with phlegm production which he thought was his sinuses. He thought it was continuing to worsen and then he developed weakness and sweats and some chest pain when he coughed and gagged. Chest pain was in the midsternal area that was nonradiating but now the pain seems to be in the epigastric area. Patient presented to facility in [place] and lab work there was done which showed a normal troponin of 0.023. Sodium 133, potassium 4.3, BUN 37 and creatinine 1.4, blood sugar 290. Chest x-ray showed no focal consolidation. Left lower lobe atelectasis. Patient was transferred to [facility] for further evaluation. He is seen today on the observation unit. He has a heparin drip running. He continues to have cough. EKG sinus rhythm with first-degree block Chest x-ray: No acute process WBC 8.8, hemoglobin 14.1, platelet count 220. Sodium 136, potassium 4, BUN 32 creatinine 1.2. Blood sugar 142. Magnesium 2.1. Alkaline phosphatase 312 other liver function test are normal. Home cardiac medications: None listed 12/28 Patient complains of a little upset stomach this morning that he thinks related to [place]. He denies having any chest pain. He denies having much cough today. Blood pressure running between 109 systolic 253. Heart rate is in the 70s, pulse ox 94% on room air. Hemoglobin 13.6. Chemistry results not available the time of this dictation. A1c 11.8. Echocardiogram results have been reviewed with the patient. He is agreeable to undergo stress testing tomorrow. Echocardiogram reveals normal LV function. Mild mitral digitation. Moderate aortic stenosis, mild to moderate aortic regurgitation. Mildly dilated aortic root. Physical examination: Gen: This is an 83-year-old male appears to be comfortable and in no acute distress. VS: reviewed HEENT: Head is atraumatic, normocephalic. Pupils equal, round. Sclerae is anicteric. LUNGS: Clear to auscultation. No wheezes or rhonchi. No intercostal retractions. HEART: Regular rate and rhythm. 2/6 systolic ejection murmur EXTREMITIES: No pedal edema. No calf tenderness. NEUROLOGICAL: Patient is awake, alert and oriented x3. Assessment: Chest pain rule out coronary artery disease Aortic stenosis, moderate Acute kidney injury, improved Elevated alkaline phosphatase Bronchitis Diabetes mellitus type II uncontrolled with A1c 11.8 Hypertension Hyperlipidemia Remote history of tobacco use Plan: Continue current cardiac medications started by attending. Patient is scheduled for Lexiscan stress test on Friday N.p.o. after midnight on Friday. Lipid panel ordered Further recommendations to follow based upon clinical course Nurse practitioner note has been reviewed, I agree with documented findings and plan of care. Patient was seen and examined. Objective - Vital Signs Vital signs: Vital Signs Temp 98 F 12/28/23 07:00 Pulse 71 12/28/23 07:00 Resp 20 12/28/23 07:00 BP 153/65 12/28/23 07:00 Pulse Ox 94 L 12/28/23 07:00 FiO2 Intake & Output 12/27/23 12/28/23 12/28/23 18:59 06:59 18:59 Intake Total 736 Balance 736 Intake: Oral 736 Other: # Voids 2 2 - Labs CBC & Chem 7: 12/28/23 05:46 12/27/23 05:44 Labs: Abnormal Lab Results - Last 24 Hours (Table) 12/27/23 12/27/23 12/27/23 Range/Units 05:44 12:07 17:29 POC Glucose (mg/dL) 295 H 229 H (70-110) mg/dL Hemoglobin A1c 11.8 H (<=6.0) % 12/27/23 12/28/23 Range/Units 20:41 06:02 POC Glucose (mg/dL) 169 H 185 H (70-110) mg/dL Hemoglobin A1c (<=6.0) %
--- NOTE | 2023-12-28 11:35 | P.PN ---
Subjective Progress Note Date: 12/28/23 Hospital course: Patient is a very pleasant 83-year-old male with a past medical history of hypertension, hyperlipidemia, non-insulin dependent diabetes mellitus, and currently under evaluation by nut sorter for suspected renal carcinoma. Patient was transferred from [facility] ER secondary to reports of chest pain and slightly elevated troponins with reported EKG changes. Upon arrival to our facility patient underwent full evaluation. Vital signs at time of arrival show blood pressure 147/91, heart rate 61, respiratory rate 20, temp 98.1 F, a nd SpO2 of 96% on room air. Labs completed and reviewed. CBC showing mild leukocytosis with WBC count of 11.7. Coagulation profile normal findings. BMP revealed mild hypocarbia with bicarb of 21, chloride of 103 and slightly elevated anion gap of 12, renal function also indicating prerenal azotemia with BUN of 36 and creatinine of 1.24. Blood glucose was 148. Liver profile showed elevated alkaline phosphatase of 316. Troponin was 0.021. proBNP was 450.. EKG was completed showing normal sinus rhythm with a first-degree AV block with TN interval of 231 ms and T wave inversion in leads I, II, and V2 through V6. Chest x-ray was completed and negative for acute cardiopulmonary process. Patient was started on low intensity heparin infusion and admitted under our services with consultation to cardiology. Cardiology discontinuing heparin infusion. Echocardiogram was completed showing a preserved EF of 65 to 70%, mild pulmonary hypertension, moderate aortic stenosis, and mildly dilated aortic root. Physical exam: Patient seen and fully evaluated at bedside this morning. Patient again reporting aching/upset stomach reporting epigastric region. He does report the GI cocktail administered yesterday did provide him with some relief but stated the pain/discomfort started again this morning. Will place order for GI cocktail and start patient on Pepcid 20 mg twice daily. Patient is scheduled to undergo cardiac stress test tomorrow morning. Patient denies having any other needs or complaints at this time. Vital signs reviewed and stable. General: Nontoxic, no distress and appears stated age. Derm: Skin warm and dry, normal coloration for ethnicity. Head: Atraumatic, normocephalic and symmetric. Eyes: EOMs intact, no lid lag, and anicteric sclera Mouth: no lip lesions, mucus membranes moist Cardiovascular: regular rate and rhythm with normal S1S2, systolic murmur, positive posterior tibial pulses bilaterally, and cap refill < 2 seconds. Lungs: Respirations even, regular, and unlabored on room air. Lungs CTA bila terally, no rhonchi, no rales, no wheezing, and no accessory muscle usage. Abdominal: soft, nontender to palpation, no guarding, no appreciable organomegaly Ext: ROM intact. No gross muscle atrophy, no edema, no contractures Neuro: Speech clear, face symmetrical and CN II-XII grossly intact with no noted focal neuro deficits Psych: Alert and oriented to person, place, time, and situation. Appropriate and pleasant affect. Assessment and Plan of Care: Chest pain, acute coronary event ruled out Orthostatic hypotension EKG changes, concerning for lateral wall ischemia Moderate aortic stenosis with dilated aortic root Mild pulmonary hypertension Exertional dyspnea History of hypertension History of hyperlipidemia -Cardiology following, planning to take patient for stress test tomorrow morning -Continue telemetry monitoring. -Cardiac diet, NPO at midnight. -Continue aspirin 81 mg daily and atorvastatin 2 mg daily. -Patient given GI cocktail for reports of indigestion and started on Pepcid 20 mg twice daily. -Lipid profile pending. -Echocardiogram completed showing a preserved EF of 65 to 70%, mild pulmonary hypertension, moderate aortic stenosis, and mildly dilated aortic root. -Orthostatic vitals were positive for orthostatic hypotension with blood pressure lying 125/65, sitting 101/44, and standing 79/48. Acid reflux -GI cocktail x 1 dose and patient started on Pepcid 20 mg twice daily. -Recommend outpatient follow-up with application integration specialist for further evaluation and possible EGD after cardiac clearance is completed during this hospitalization. None insulin-dependent Diabetes Mellitus with hemoglobin A1c of 11.8% -Hold oral hypoglycemic medications and pt placed on glycemic protocol with novolog sliding scale. Data reviewed: Vital signs reviewed. Blood pressure 153/65, heart rate 71, respiratory rate 20, temp 98.0 F, SpO2 of 94% on room air. Morning labs reviewed and stable. CBCremains unremarkable. Awaiting CMP and magnesium results currently still pending. CODE STATUS: Full code DVT prophylaxis: Currently on low intensity heparin infusion Anticipated discharge date: Clinical course to determine Anticipated discharge place: Clinical course to determine Patient was seen independently by Nurse Pracitioner. This document was prepared using [employer] HR dictation software. Please allow for errors in contract admin, while rare they do occur. Objective - Vital Signs Vital signs: Vital Signs Temp 98 F 12/28/23 07:00 Pulse 71 12/28/23 07:00 Resp 20 12/28/23 07:00 BP 153/65 12/28/23 07:00 Pulse Ox 94 L 12/28/23 07:00 FiO2 Intake & Output 12/27/23 12/28/23 12/28/23 18:59 06:59 18:59 Intake Total 736 Balance 736 Intake: Oral 736 Other: # Voids 2 2 - Labs CBC & Chem 7: 12/28/23 05:46 12/27/23 05:44 Labs: Abnormal Lab Results - Last 24 Hours (Table) 12/27/23 12/27/23 12/27/23 Range/Units 05:44 12:07 17:29 POC Glucose (mg/dL) 295 H 229 H (70-110) mg/dL Hemoglobin A1c 11.8 H (<=6.0) % 12/27/23 12/28/23 Range/Units 20:41 06:02 POC Glucose (mg/dL) 169 H 185 H (70-110) mg/dL Hemoglobin A1c (<=6.0) %
[2023-12-28 11:58] LABS: ALT 26 U/L (10-49); AST 30 U/L (14-35); Albumin 3.3 g/dL (3.8-4.9); Albumin/Globulin Ratio 1.32 Ratio (1.60-3.17); Alkaline Phosphatase 318 U/L (41-126); BUN/Creat Ratio 22.08 Ratio (12.00-20.00); Blood Urea Nitrogen 28.7 mg/dL (9.0-27.0); Calcium 9.5 mg/dL (8.7-10.3); Carbon Dioxide 20.1 mmol/L (21.6-31.8); Chloride 99 mmol/L (96-109); Chol/HDL Ratio 2.27 Ratio; Globulin 2.5 g/dL (1.6-3.3); Glucose 198 mg/dL (70-110); LDL Cholesterol,Calculated 45.4 mg/dL (0.0-131.0); Potassium 3.9 mmol/L (3.5-5.5); Sodium 137 mmol/L (135-145); Total Bilirubin 0.5 mg/dL (0.3-1.2); Total Protein 5.8 g/dL (6.2-8.2)
[2023-12-28] MEDS ORDERED: MAG HYDROX/AL HYDROX/SIMETH 30 ML, HYOSCYAMINE ELIXIR 10 ML, LIDOCAINE VISCOUS 10 ML PO ONE ×3 (12:00)
[2023-12-28 12:08] LABS: Glucose,Whole Blood 234 mg/dL (70-110)
[2023-12-28 17:17] LABS: Glucose,Whole Blood 247 mg/dL (70-110)
[2023-12-28 20:16] LABS: Glucose,Whole Blood 250 mg/dL (70-110)
[2023-12-29] MEDS ORDERED: AMINOPHYLLINE 500 MG/20 ML VIAL IV PRN (06:00)
[2023-12-29] MEDS ORDERED: REGADENOSON 0.4 MG/5 ML SYRINGE IV PRN (06:00)
[2023-12-29] MEDS ORDERED: CAFFEINE CITRATE 60 MG/3 ML VIAL IV PRN (06:00)
[2023-12-29 06:15] LABS: Glucose,Whole Blood 159 mg/dL (70-110)
[2023-12-29] MEDS: INSULIN ASPART (NovoLOG) 100 UNIT/ML VIAL SQ SCH ×2 (06:20→13:25)
[2023-12-29] MEDS: ASPIRIN 81 MG PO SCH (08:43)
[2023-12-29] MEDS: ATORVASTATIN 40 MG TAB PO SCH (08:43)
[2023-12-29] MEDS ORDERED: FAMOTIDINE 20 MG TAB PO SCH (09:00)
[2023-12-29 09:41] VITALS: BP 108/69; PULSE 87; RESP 18; TEMP 97.7
--- NOTE | 2023-12-29 10:52 | P.PN ---
Subjective HISTORY OF PRESENT ILLNESS: This is an 83-year-old man with no previous cardiac history and no previous cardiac workup. He has a past medical history of diabetes, hypertension, hyperlipidemia, remote tobacco use and dependence. We have been asked to evaluate the patient for chest pain. Patient states that for the past 1 and half months he has had cough with phlegm production which he thought was his sinuses. He thought it was continuing to worsen and then he developed weakness and sweats and some chest pain when he coughed and gagged. Chest pain was in the midsternal area that was nonradiating but now the pain seems to be in the epigastric area. Patient presented to facility in [place] and lab work there was done which showed a normal troponin of 0.023. Sodium 133, potassium 4.3, BUN 37 and creatinine 1.4, blood sugar 290. Chest x-ray showed no focal consolidation. Left lower lobe atelectasis. Patient was transferred to [facility] for further evaluation. He is seen today on the observation unit. He has a heparin drip running. He continues to have cough. EKG sinus rhythm with first-degree block Chest x-ray: No acute process WBC 8.8, hemoglobin 14.1, platelet count 220. Sodium 136, potassium 4, BUN 32 creatinine 1.2. Blood sugar 142. Magnesium 2.1. Alkaline phosphatase 312 other liver function test are normal. Home cardiac medications: None listed 12/28 Patient complains of a little upset stomach this morning that he thinks related to [place]. He denies having any chest pain. He denies having much cough today. Blood pressure running between 109 systolic 253. Heart rate is in the 70s, pulse ox 94% on room air. Hemoglobin 13.6. Chemistry results not available the time of this dictation. A1c 11.8. Echocardiogram results have been reviewed with the patient. He is agreeable to undergo stress testing tomorrow. Echocardiogram reveals normal LV function. Mild mitral digitation. Moderate aortic stenosis, mild to moderate aortic regurgitation. Mildly dilated aortic root. December 29, 2023 Patient examined this morning in the stress lab. Patient denies any further episodes of chest pain or pressure. He currently denies any shortness of breath. Vital signs are stable. Most recent blood pressure 108/69. PHYSICAL EXAM: VITAL SIGNS: Reviewed. GENERAL: Well-developed in no acute distress. NECK: Supple. No JVD or thyromegaly LUNGS: Respirations even and unlabored. Lungs essentially clear to auscultation bilaterally. HEART: Regular rate and rhythm. S1 and S2 heard. Systolic murmur noted EXTREMITIES: Normal range of motion. No clubbing or cyanosis. Peripheral pulses intact. 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 Lofton Nurse practitioner note has been reviewed by physician. Signing provider agrees with the documented findings, assessment, and plan of care documented by FRENCH FOLDING MACHINE OPERATOR as a scribe. Objective - Vital Signs Vital signs: Vital Signs Temp 97.7 F 12/29/23 07:00 Pulse 87 12/29/23 07:00 Resp 18 12/29/23 07:00 BP 108/69 12/29/23 07:00 Pulse Ox 94 L 12/29/23 07:00 FiO2 Intake & Output 12/28/23 12/29/23 12/29/23 18:59 06:59 18:59 Intake Total 1236 Balance 1236 Intake: Oral 1236 Other: Voiding Method Toilet # Voids 2 1 - Labs CBC & Chem 7: 12/28/23 05:46 12/28/23 05:46 Labs: Abnormal Lab Results - Last 24 Hours (Table) 12/28/23 12/28/23 12/28/23 Range/Units 05:46 12:07 17:16 Carbon Dioxide 20.1 L (21.6-31.8) mmol/L Anion Gap 17.90 H (4.00-12.00) mmol/L BUN 28.7 H (9.0-27.0) mg/dL Est GFR (CKD-EPI) 55 L (>=60) BUN/Creatinine Ratio 22.08 H (12.00-20.00) Ratio Glucose 198 H (70-110) mg/dL POC Glucose (mg/dL) 234 H 247 H (70-110) mg/dL Alkaline Phosphatase 318 H (41-126) U/L Total Protein 5.8 L (6.2-8.2) g/dL Albumin 3.3 L (3.8-4.9) g/dL Albumin/Globulin Ratio 1.32 L (1.60-3.17) Ratio 12/28/23 12/29/23 Range/Units 20:14 06:14 Carbon Dioxide (21.6-31.8) mmol/L Anion Gap (4.00-12.00) mmol/L BUN (9.0-27.0) mg/dL Est GFR (CKD-EPI) (>=60) BUN/Creatinine Ratio (12.00-20.00) Ratio Glucose (70-110) mg/dL POC Glucose (mg/dL) 250 H 159 H (70-110) mg/dL Alkaline Phosphatase (41-126) U/L Total Protein (6.2-8.2) g/dL Albumin (3.8-4.9) g/dL Albumin/Globulin Ratio (1.60-3.17) Ratio
[2023-12-29 12:36] LABS: Glucose,Whole Blood 224 mg/dL (70-110)
--- NOTE | 2023-12-29 13:21 | CA ---
Lexiscan Nuclear Stress Test Report Name: Milton Maurer Exam Date: 12/29/2023 09:33 Exam Location: [facility] Ht (in): 70 Wt (lb): 160 BSA: 1.90 Ordering Phys: Anjali Deshpande Referring Phys: ANJALI DESHPANDE,, Technologist: Jaquan Minor Age: 83 Gender: M : 1940 Procedure CPT: Indications: Reflex order-Stress test ICD-10 Codes: Patient History: CHEST PAIN, DIFFICULTY IN BREATHING, HTN, DIABETES, PRIOR SMOKER Medications: Meds past 24 hrs: Pretest Chest Pain: STRESS TEST Lexiscan Protocol Exercise Duration (min:sec): 02:[address] Depressions (mm): Angina Score: Lieberman Score: Resting HR (bpm): 60 Peak HR (bpm): 86 Resting BP (mmHg): 135 / 63 Peak BP (mmHg): 135 / 63 MPHR: 138 Target HR: 117 % MPHR: 62 METS: 1.0 Total Dose: Peak Dose: Atropine: Double Product: 87116 BP Response: Stress Termination: INFUSION COMPLETE Stress Symptoms: NO SYMPTOMS Stress Summary: ECG ANALYSIS Resting ECG: Sinus rhythm, non specific T wave flattening in inferior leads at rest Stress ECG: Non specific T wave inversions in V3-V4 leads at peak infusion. Occasional PVC. No sustained arrythmia. CONCLUSIONS Borderline abnormal ECG response to lexican infusion Normal hemodynamic response to lexiscan infusion Please refer to the nuclear portion of the stress test for complete interpretation of this study Dr Rip Geiger (Electronically Signed) Final Date: 29 December 2023 13:20
--- NOTE | 2023-12-29 13:57 | NM ---
EXAMINATION TYPE: NM stress lexiscan cardiolite DATE OF EXAM: 12/29/2023 COMPARISON: NONE CLINICAL INDICATION: Male, 83 years old with history of chest pain; TECHNIQUE: After the intravenous administration of 10.6 mCi Tc 99m Sestamibi - Cardiolite resting SP ECT images acquired 45 minutes post injection. The patient received 0.4mg Lexiscan, 25.5 mCi Tc 99m Sestamibi - Stress images obtained [address] injection FINDINGS: Review of stress and rest SPECT images demonstrates a fixed defect along the mid inferolateral wall a nd contiguous defect at the basal inferior wall. No discrete reversibility is seen. Gated analysis sh ows normal wall motion with an estimated left ventricular ejection fraction of 64 %. TID is increase d at 1.26. IMPRESSION: 1. Fixed perfusion along the inferior wall could represent prominent diaphragmatic attenuation artifa ct or area of old infarct. Clinically correlate. No discrete reversibility ability is seen. 2. However, the transient ischemic dilatation ratio is increased at 1.26. This may be seen in the set ting of multivessel, global inducible ischemia. Further workup as clinically indicated.
--- NOTE | 2023-12-29 14:35 | P.DS ---
Providers Date of admission: 12/26/23 21:25 Expected date of discharge: 12/29/23 Attending physician: Chris Ware MD Primary care physician: [facility] Course: Discharge Diagnosis: Chest pain, acute coronary event ruled out Orthostatic hypotension EKG changes, concerning for lateral wall ischemia Moderate aortic stenosis with dilated aortic root. Mild pulmonary hypertension Exertional dyspnea History of hypertension History of hyperlipidemia Acid reflux None insulin-dependent Diabetes Mellitus with hemoglobin A1c of 11.8% Hospital course: Patient is a very pleasant 83-year-old male with a past medical history of hypertension, hyperlipidemia, non-insulin dependent diabetes mellitus, and currently under evaluation by management professor for suspected renal carcinoma. Patient was transferred from [facility] ER secondary to reports of chest pain and slightly elevated troponins with reported EKG changes. Upon arrival to our facility patient underwent full evaluation. Vital signs at time of arrival show blood pressure 147/91, heart rate 61, respiratory rate 20, temp 98.1 F, and SpO2 of 96% on room air. Labs completed and reviewed. CBC showing mild leukocytosis with WBC count of 11.7. Coagulation profile normal findings. BMP revealed mild hypocarbia with bicarb of 21, chloride of 103 and slightly elevated anion gap of 12, renal function also indicating prerenal azotemia with BUN of 36 and creatinine of 1.24. Blood glucose was 148. Liver profile showed elevated alkaline phosphatase of 316. Troponin was 0.021. proBNP was 450.. EKG was completed showing normal sinus rhythm with a first-degree AV block with MO interval of 231 ms and T wave inversion in leads I, II, and V2 through V6. Chest x-ray was completed and negative for acute cardiopulmonary process. Patient was started on low intensity heparin infusion and admitted under our services with consultation to cardiology. Cardiology discontinuing heparin infusion. Echocardiogram was completed showing a preserved EF of 65 to 70%, mild pulmonary hypertension, moderate aortic stenosis, and mildly dilated aortic root. Patient was taken for Lexiscan stress test this morning. Per cardiology [place] scan was reviewed by carpet yarn winder operator showing no indication for cardiac cath at this time clearing patient from cardiac perspective. Medically, patient is free from any complaints at this time and is medically stable for discharge. Patient instructed that with his orthostatic hypotension it is highly recommended to change positions slowly from lying to sitting, sitting before standing, and upon standing before walking to allow his blood pressures to adjust to the changes. Patient verbalized understanding and denied having any questions, concerns, or complaints. Patient's son also at bedside denying any questions at this time. Patient medically stable for discharge and to follow-up outpatient with PCP in 1 to 2 days and with cardiology in 1 week. Physical exam: Vital signs reviewed and stable. General: Nontoxic, no distress and appears stated age. Derm: Skin warm and dry, normal coloration for ethnicity. Head: Atraumatic, normocephalic and symmetric. Eyes: EOMs intact, no lid lag, and anicteric sclera Mouth: no lip lesions, mucus membranes moist Cardiovascular: regular rate and rhythm with normal S1S2, systolic murmur, positive posterior tibial pulses bilaterally, and cap refill < 2 seconds. Lungs: Respirations even, regular, and unlabored on room air. Lungs CTA bilaterally, no rhonchi, no rales, no wheezing, and no accessory muscle usage. Abdominal: soft, nontender to palpation, no guarding, no appreciable organomegaly Ext: ROM intact. No gross muscle atrophy, no edema, no contractures Neuro: Speech clear, face symmetrical and CN II-XII grossly intact with no noted focal neuro deficits Psych: Alert and oriented to person, place, time, and situation. Appropriate and pleasant affect. A total of 35 minutes of time were spent preparing this complex discharge summary. Pt was discharged on 12/29/2023 at 2:36 PM. Patient was seen independently by Nurse Practitioner. This document was prepared using [employer] dictation software. Please allow for errors in dispenser operator while rare they do occur. Patient Condition at Discharge: Stable Plan - Discharge Summary New Discharge Prescriptions: New Famotidine [Pepcid] 20 mg PO DAILY 90 Days #180 tab Continue Semaglutide 0.25mg/0.375ml Pen 0.5 mg SQ JAMISON glipiZIDE [Glucotrol] 20 mg PO AC-BID Empagliflozin [Jardiance] 25 mg PO DAILY Cholecalciferol [Vitamin D3 (25 Mcg = 1000 Iu)] 50 mcg PO DAILY Rosuvastatin [Crestor] 20 mg PO DAILY [place]-3/Dha/Epa/Fish Oil [Fish Oil 1,000 mg Softgel] 1 cap PO HS Discharge Medication List Cholecalciferol [Vitamin D3 (25 Mcg = 1000 Iu)] 50 mcg PO DAILY 12/27/23 [History] Empagliflozin [Jardiance] 25 mg PO DAILY 12/27/23 [History] [place]-3/Dha/Epa/Fish Oil [Fish Oil 1,000 mg Softgel] 1 cap PO HS 12/27/23 [History] Rosuvastatin [Crestor] 20 mg PO DAILY 12/27/23 [History] Semaglutide 0.25mg/0.375ml Pen 0.5 mg SQ JAMISON 12/27/23 [History] glipiZIDE [Glucotrol] 20 mg PO AC-BID 12/27/23 [History] Famotidine [Pepcid] 20 mg PO DAILY 90 Days #180 tab 12/29/23 [Rx] Follow up Appointment(s)/Referral(s): Rip Geiger MD [Medical Doctor] - 1 Week Emiliano Dumont DO [Primary Care Provider] - 1-2 days Activity/Diet/Wound Care/Special Instructions: Activity: As tolerated. Take breaks as needed. Remember to change positions slowly from lying to sitting and from sitting to standing. Isometric exercises involve adeel your muscles without actually moving your body. Isometrics squeeze the muscle and push the blood back toward the heart. They are simple to do and can be done lying in bed or seated in a comfortable chair. It's a good idea to do these in bed before getting up to prepare your body for sitting and standing. Transition slowly with your body. Go from lying to sitting on the edge of the bed. Stay there for several minutes, allowing the body to naturally adjust to the change in position. Once you are standing, pause and wait before walking to allow blood pressure to adjust again. If you feel lightheaded at any point, wait for a few minutes in that position to see if it resolves. If not, then return to the prior position as your body isn't adjusting properly. SLOWLY is the morales. Diet: Heart healthy and carb consistent diet. Avoid salts, or foods with hidden salts such as canned or boxed foods and frozen dinners. Extra salt makes your heart work harder and traps the fluid in your body for longer. Special Instructions: Take all of your medications as directed and remember to keep all of your doctor's appointments and follow-up as needed. Thank you for allowing us to participate in your care, it was truly a pleasure having you for our patient!!! Discharge Disposition: HOME SELF-CARE
[2023-12-29 14:49] VITALS: BMI 22.9
== END 2023-12-29 15:38 | disposition home or self-care (01) ==
LOC: EC 21:20 → 6NMEDSUR 21:25
PROVIDERS: ADMIT Internal Medicine; ATTEND Internal Medicine
DX: R07.89 Other chest pain (principal); E11.65 Type 2 diabetes mellitus with hyperglycemia; I35.2 Nonrheumatic aortic (valve) stenosis with insufficiency; N17.9 Acute kidney failure, unspecified; R74.8 Abnormal levels of other serum enzymes; J40 Bronchitis, not specified as acute or chronic; K21.9 Gastro-esophageal reflux disease without esophagitis; I95.1 Orthostatic hypotension; I27.20 Pulmonary hypertension, unspecified; I77.810 Thoracic aortic ectasia; R06.09 Other forms of dyspnea; I10 Essential (primary) hypertension; E78.5 Hyperlipidemia, unspecified; Z87.891 Personal history of nicotine dependence; Z20.822 Contact with and (suspected) exposure to COVID-19; Z79.82 Long term (current) use of aspirin; Z79.899 Other long term (current) drug therapy
CPT/HCPCS: 96365; 96366 ×2; 96372 ×3; 96376; 99285; 36415; 93005; 93017; 93306; 83880; 80061; 80053 ×3; 83605; 83735 ×3; 84100 ×2; 84484; 85025 ×2; 85027; 85610; 85730 ×2; 83036; 87636; 71045; 78452; G0378 ×4; A9500; J1644 ×2; J2785